=== PATIENT | male | born 1970 | race Asian ===

== ENCOUNTER 2019-08-24 07:42 | Emergency (ER) | payer MEDICAID, OTHER ==
[~2019-08-24] VITALS: Ht 165.1 cm; Wt 75.0 kg
[2019-08-24 12:16] VITALS: BP 159/85
== END 2019-08-24 12:33 | disposition home or self-care (01) ==
LOC: EMS 07:43
DX: S46.812A Strain of other muscles, fascia and tendons at shoulder and upper arm level, left arm, initial encounter (principal); F17.210 Nicotine dependence, cigarettes, uncomplicated; V49.9XXA Car occupant (driver) (passenger) injured in unspecified traffic accident, initial encounter; Y93.89 Activity, other specified; Y92.488 Other paved roadways as the place of occurrence of the external cause; Y99.8 Other external cause status